=== PATIENT | male | born 1940 | race Caucasian/White ===

== ENCOUNTER 2023-04-04 20:40 | Inpatient (IN) | payer MEDICARE, OTHER ==
[~2023-04-04] VITALS: Ht 175.3 cm; Wt 73.1 kg
[2023-04-04 21:04] VITALS: O2SAT 96
[2023-04-04 22:07] LABS: BASOPHILS % (AUTO) 0.5 % (0.0-2.0); EOSINOPHILS # (AUTO) 0.1 K/uL (0.0-0.7); EOSINOPHILS % (AUTO) 2.4 % (0.0-6.0); HEMATOCRIT 32 % (39-51); HEMOGLOBIN 10.6 g/dL (13.5-17.5); LYMPHOCYTES # (AUTO) 1.1 K/uL (0.8-4.8); LYMPHOCYTES % (AUTO) 18.5 % (20.0-44.0); MEAN CORPUSCULAR HEMOGLOBIN 29 PG (26.0-33.0); MEAN CORPUSCULAR HGB CONC 33 g/dl (31.0-36.0); MEAN CORPUSCULAR VOLUME 88 fL (80-96); MONOCYTES # (AUTO) 0.6 K/uL (0.1-1.30); MONOCYTES % (AUTO) 10.1 % (2.0-12.0); NEUTROPHILS % (AUTO) 68.5 % (43.0-81.0); PLATELET COUNT (AUTO) 222 K/uL (150-450); RED CELL DISTRIBUTION WIDTH 15.6 % (11.5-15.0); WHITE BLOOD COUNT (AUTO) 5.9 K/uL (4.3-11.0)
[2023-04-04 22:28] LABS: ALBUMIN 3.3 g/dL (3.4-5.0); ALCOHOL, BLOOD < 3 mg/dL (0-10); CALCIUM, SERUM 8.9 mg/dL (8.5-10.1); CARBON DIOXIDE 27 mmol/L (21-32); CHLORIDE 109 mmol/L (98-107); CREATININE 1.2 mg/dL (0.6-1.3); GLUCOSE 96 mg/dL (74-106); POTASSIUM 4.4 mmol/L (3.5-5.1); SODIUM SERUM 143 mmol/L (136-145); UREA NITROGEN, BLOOD 26 mg/dL (7-18)
[2023-04-04 23:19] LABS: ACETAMINOPHEN < 10 ug/ml (10-30); ALANINE AMINOTRANSFERASE 14 U/L (12-78); ALKALINE PHOSPHATASE 66 U/L (46-116); ASPARTATE AMINOTRANSFERASE 15 U/L (15-37); BILIRUBIN,DIRECT 0.1 mg/dL (0.0-0.2); BILIRUBIN,TOTAL 0.3 mg/dL (0.2-1.0); TOTAL PROTEIN, SERUM 6.9 g/dL (6.4-8.2)
[2023-04-04 23:30] LABS: SALICYLATE 0.8 mg/dL (2.8-20.0)
[2023-04-04 23:34] LABS: APPEARANCE,URINE CLEAR (CLEAR); BILIRUBIN,URINE NEGATIVE (NEGATIVE); BLOOD, URINE NEGATIVE Ery/uL (NEGATIVE); COLOR,URINE YELLOW (YELLOW); KETONES,URINE NEGATIVE (NEGATIVE); LEUKOCYTE ESTERASE ,URINE NEGATIVE (NEGATIVE); NITRITE, URINE NEGATIVE (NEGATIVE); PROTEIN,URINE NEGATIVE (NEGATIVE); UGLUCOSE NEGATIVE (NEGATIVE); UROBILINOGEN,URINE 0.2 EU/dL (0.2)
[2023-04-05 00:27] LABS: AMPHETAMINE, URINE NEGATIVE (NEGATIVE); BARBITURATE, URINE NEGATIVE (NEGATIVE); BENZODIAZEPINE, URINE NEGATIVE (NEGATIVE); CANNABINOID, URINE NEGATIVE (NEGATIVE); COCCAINE, URINE NEGATIVE (NEGATIVE); OPIATE, URINE NEGATIVE (NEGATIVE); PHENCYCLIDINE SCREEN,URINE NEGATIVE (NEGATIVE)
[2023-04-05] MEDS ORDERED: CHOL200013 PO (02:27)
[2023-04-05] MEDS ORDERED: GABA-532 PO (02:27)
[2023-04-05] MEDS ORDERED: HYDR25TA4 PO (02:27)
[2023-04-05] MEDS ORDERED: MIRT-90 PO (02:27)
[2023-04-05] MEDS ORDERED: ASPI-1420 PO (02:27)
[2023-04-05 02:30] VITALS: BP 128/75; TEMP 97.6
[2023-04-05] MEDS ORDERED: LORAZEPAM 0.5 MG TABLET PO PRN (03:30)
[2023-04-05] MEDS ORDERED: MAG HYDROX/AL HYDROX/SIMETH 30 ML UDC PO PRN (03:30)
[2023-04-05] MEDS ORDERED: MAGNESIUM HYDROXIDE 30 ML UDC PO PRN (03:30)
[2023-04-05] MEDS ORDERED: ZOLPIDEM TARTRATE 5 MG TABLET PO PRN (03:30)
[2023-04-05] MEDS ORDERED: BLOOD SUGAR DIAGNOSTIC 1 EACH STRIP IN ONE (03:30)
[2023-04-05] MEDS ORDERED: ACETAMINOPHEN 325 MG TABLET PO PRN (03:30)
[2023-04-05] MEDS ORDERED: CICL6.6S5 TP (07:43)
[2023-04-05] MEDS ORDERED: MAGN400O6 PO (07:43)
[2023-04-05] MEDS ORDERED: CHOL100043 PO (07:43)
[2023-04-05] MEDS ORDERED: ACET-868 PO (07:43)
[2023-04-05] MEDS ORDERED: NA P133E RC (07:43)
[2023-04-05] MEDS ORDERED: BISA10SU11 RC (07:43)
[2023-04-05 08:00] VITALS: BP 150/64; TEMP 97.9; O2SAT 96
[2023-04-05] MEDS ORDERED: BISACODYL SUPP (10 MG) 10 MG/SUPP.RECT SUPP.RECT RC PRN (13:00)
[2023-04-05] MEDS ORDERED: GABAPENTIN 100 MG CAPSULE PO SCH (13:00)
[2023-04-05] MEDS: GABAPENTIN 300 MG CAPSULE PO SCH ×2 (13:19→16:39)
[2023-04-05 16:00] VITALS: BP 154/79; TEMP 97.8; O2SAT 96
[2023-04-05] MEDS: LORAZEPAM 0.5 MG TABLET PO PRN (16:25)
[2023-04-05] MEDS: Z GUARD REMEDY 4 OZ OINT TP SCH (16:38)
[2023-04-05] MEDS: risperiDONE 0.25 MG TABLET PO SCH (16:39)
[2023-04-05 20:00] VITALS: BP 106/78; TEMP 97.9; O2SAT 98
[2023-04-05] MEDS: MIRTAZAPINE 15 MG TABLET PO SCH (21:57)
[2023-04-06 08:00] VITALS: BP 130/74; TEMP 97.9; O2SAT 97
[2023-04-06] MEDS: LORAZEPAM 0.5 MG TABLET PO PRN (08:17)
[2023-04-06] MEDS: GABAPENTIN 300 MG CAPSULE PO SCH ×3 (09:05→16:13)
[2023-04-06] MEDS: risperiDONE 0.25 MG TABLET PO SCH ×2 (09:05→16:13)
[2023-04-06] MEDS: Z GUARD REMEDY 4 OZ OINT TP SCH ×2 (09:05→16:14)
[2023-04-06] MEDS: CHOLECALCIFEROL 1,000 UNIT TABLET (VIT D3) PO SCH (09:11)
[2023-04-06] MEDS: ASPIRIN EC 81 MG TABLET.DR PO SCH (09:11)
[2023-04-06] MEDS: HYDROCHLOROTHIAZIDE 25 MG TABLET PO SCH (09:11)
[2023-04-06 15:05] LABS: BASOPHILS % (AUTO) 0.7 % (0.0-2.0); EOSINOPHILS # (AUTO) 0.2 K/uL (0.0-0.7); EOSINOPHILS % (AUTO) 3.9 % (0.0-6.0); HEMATOCRIT 36 % (39-51); HEMOGLOBIN 11.7 g/dL (13.5-17.5); LYMPHOCYTES % (AUTO) 21.2 % (20.0-44.0); MEAN CORPUSCULAR HEMOGLOBIN 29 PG (26.0-33.0); MEAN CORPUSCULAR HGB CONC 33 g/dl (31.0-36.0); MEAN CORPUSCULAR VOLUME 88 fL (80-96); MONOCYTES # (AUTO) 0.5 K/uL (0.1-1.30); MONOCYTES % (AUTO) 9.2 % (2.0-12.0); NEUTROPHILS # (AUTO) 3.2 K/uL (1.8-8.9); PLATELET COUNT (AUTO) 232 K/uL (150-450); RED BLOOD CELL COUNT(AUTO) 4.09 MIL/uL (4.5-6.0); WHITE BLOOD COUNT (AUTO) 4.9 K/uL (4.3-11.0)
[2023-04-06 15:16] LABS: CALCIUM, SERUM 8.5 mg/dL (8.5-10.1); CREATININE 1.1 mg/dL (0.6-1.3); POTASSIUM 4.2 mmol/L (3.5-5.1)
[2023-04-06 16:00] VITALS: BP 95/53; TEMP 97.8; O2SAT 94
[2023-04-06 20:00] VITALS: BP 104/52; TEMP 97.8; O2SAT 97
[2023-04-06] MEDS: MIRTAZAPINE 15 MG TABLET PO SCH (21:04)
[2023-04-07] MEDS: LORAZEPAM 0.5 MG TABLET PO PRN ×2 (06:43→13:34)
[2023-04-07 08:00] VITALS: BP 114/75; TEMP 97.8; O2SAT 96
[2023-04-07] MEDS: ASPIRIN EC 81 MG TABLET.DR PO SCH (09:02)
[2023-04-07] MEDS: CHOLECALCIFEROL 1,000 UNIT TABLET (VIT D3) PO SCH (09:02)
[2023-04-07] MEDS: GABAPENTIN 300 MG CAPSULE PO SCH ×3 (09:02→16:44)
[2023-04-07] MEDS: HYDROCHLOROTHIAZIDE 25 MG TABLET PO SCH (09:02)
[2023-04-07] MEDS: risperiDONE 0.25 MG TABLET PO SCH ×2 (09:02→16:44)
[2023-04-07] MEDS: Z GUARD REMEDY 4 OZ OINT TP SCH ×2 (09:03→16:44)
[2023-04-07 16:01] VITALS: BP 113/76; TEMP 97.8; O2SAT 96
[2023-04-07 20:28] VITALS: BP 104/64; TEMP 98.1; O2SAT 96
[2023-04-07] MEDS: MIRTAZAPINE 15 MG TABLET PO SCH (21:26)
[2023-04-08 08:00] VITALS: BP 134/59; TEMP 97.9; O2SAT 95
[2023-04-08] MEDS: risperiDONE 0.25 MG TABLET PO SCH ×2 (08:35→17:53)
[2023-04-08] MEDS: CHOLECALCIFEROL 1,000 UNIT TABLET (VIT D3) PO SCH ×2 (08:35→09:00)
[2023-04-08] MEDS: GABAPENTIN 300 MG CAPSULE PO SCH ×3 (08:36→17:53)
[2023-04-08] MEDS: ASPIRIN EC 81 MG TABLET.DR PO SCH ×2 (08:36→09:00)
[2023-04-08] MEDS: HYDROCHLOROTHIAZIDE 25 MG TABLET PO SCH ×2 (08:37→09:00)
[2023-04-08] MEDS: ENSURE ENLIVE 237 ML LIQUID (VANILLA) PO SCH ×2 (08:38→17:00)
[2023-04-08] MEDS: Z GUARD REMEDY 4 OZ OINT TP SCH ×2 (08:38→17:54)
[2023-04-08] MEDS: LORAZEPAM 0.5 MG TABLET PO PRN (12:01)
[2023-04-08 16:00] VITALS: BP 121/66; TEMP 98.1; O2SAT 100
[2023-04-08 19:48] VITALS: BP 104/62; TEMP 98; O2SAT 98
[2023-04-08] MEDS: MIRTAZAPINE 15 MG TABLET PO SCH (21:16)
[2023-04-09 08:00] VITALS: BP 123/73; TEMP 98.7; O2SAT 95
[2023-04-09] MEDS: risperiDONE 0.25 MG TABLET PO SCH ×2 (08:42→16:42)
[2023-04-09] MEDS: CHOLECALCIFEROL 1,000 UNIT TABLET (VIT D3) PO SCH (08:42)
[2023-04-09] MEDS: ASPIRIN EC 81 MG TABLET.DR PO SCH (08:42)
[2023-04-09] MEDS: GABAPENTIN 300 MG CAPSULE PO SCH ×3 (08:42→16:42)
[2023-04-09] MEDS: HYDROCHLOROTHIAZIDE 25 MG TABLET PO SCH (08:43)
[2023-04-09] MEDS: Z GUARD REMEDY 4 OZ OINT TP SCH ×2 (09:06→16:42)
[2023-04-09] MEDS: ENSURE ENLIVE 237 ML LIQUID (VANILLA) PO SCH ×2 (09:10→16:51)
[2023-04-09] MEDS: MEMANTINE HCL 5 MG TABLET PO SCH ×2 (10:55→16:42)
[2023-04-09 16:00] VITALS: BP 123/93; TEMP 97.9; O2SAT 98
[2023-04-09 20:22] VITALS: BP 103/57; TEMP 97.8; O2SAT 97
[2023-04-09] MEDS: MIRTAZAPINE 15 MG TABLET PO SCH (21:12)
[2023-04-10] MEDS: ENSURE ENLIVE 237 ML LIQUID (VANILLA) PO SCH ×2 (07:39→16:03)
[2023-04-10 08:00] VITALS: BP 122/79; TEMP 98.7; O2SAT 98
[2023-04-10] MEDS: CHOLECALCIFEROL 1,000 UNIT TABLET (VIT D3) PO SCH (08:43)
[2023-04-10] MEDS: HYDROCHLOROTHIAZIDE 25 MG TABLET PO SCH (08:43)
[2023-04-10] MEDS: ASPIRIN EC 81 MG TABLET.DR PO SCH (08:43)
[2023-04-10] MEDS: risperiDONE 0.25 MG TABLET PO SCH ×2 (08:43→16:03)
[2023-04-10] MEDS: MEMANTINE HCL 5 MG TABLET PO SCH ×2 (08:44→16:03)
[2023-04-10] MEDS: GABAPENTIN 300 MG CAPSULE PO SCH ×3 (08:44→16:03)
[2023-04-10] MEDS: Z GUARD REMEDY 4 OZ OINT TP SCH ×2 (09:27→17:46)
[2023-04-10 16:00] VITALS: BP 99/80; TEMP 98.6; O2SAT 97
[2023-04-10 20:18] VITALS: BP 103/75; TEMP 98; O2SAT 97
[2023-04-10] MEDS: MIRTAZAPINE 15 MG TABLET PO SCH (21:07)
[2023-04-11 08:00] VITALS: BP 118/75; TEMP 97.7; O2SAT 97
[2023-04-11] MEDS: ENSURE ENLIVE 237 ML LIQUID (VANILLA) PO SCH ×2 (09:09→16:18)
[2023-04-11] MEDS: CHOLECALCIFEROL 1,000 UNIT TABLET (VIT D3) PO SCH (09:10)
[2023-04-11] MEDS: MEMANTINE HCL 5 MG TABLET PO SCH ×2 (09:10→16:18)
[2023-04-11] MEDS: ASPIRIN EC 81 MG TABLET.DR PO SCH (09:10)
[2023-04-11] MEDS: Z GUARD REMEDY 4 OZ OINT TP SCH ×2 (09:10→16:18)
[2023-04-11] MEDS: GABAPENTIN 300 MG CAPSULE PO SCH ×3 (09:10→16:17)
[2023-04-11] MEDS: risperiDONE 0.25 MG TABLET PO SCH ×2 (09:10→16:17)
[2023-04-11] MEDS: HYDROCHLOROTHIAZIDE 25 MG TABLET PO SCH (09:10)
[2023-04-11 16:00] VITALS: BP 125/77; TEMP 98.3; O2SAT 96
[2023-04-11] MEDS: BENZTROPINE MESYLATE (1 MG) 1 MG TABLET PO SCH (16:17)
[2023-04-11 20:00] VITALS: BP 112/65; TEMP 97.9; O2SAT 98
[2023-04-11] MEDS: MIRTAZAPINE 15 MG TABLET PO SCH (21:17)
[2023-04-12 08:00] VITALS: BP 115/73; TEMP 98; O2SAT 100
[2023-04-12] MEDS: risperiDONE 0.25 MG TABLET PO SCH ×2 (08:21→16:37)
[2023-04-12] MEDS: HYDROCHLOROTHIAZIDE 25 MG TABLET PO SCH (08:21)
[2023-04-12] MEDS: ENSURE ENLIVE 237 ML LIQUID (VANILLA) PO SCH ×2 (08:21→16:38)
[2023-04-12] MEDS: BENZTROPINE MESYLATE (1 MG) 1 MG TABLET PO SCH ×2 (08:21→16:37)
[2023-04-12] MEDS: MEMANTINE HCL 5 MG TABLET PO SCH (08:21)
[2023-04-12] MEDS: ASPIRIN EC 81 MG TABLET.DR PO SCH (08:21)
[2023-04-12] MEDS: GABAPENTIN 300 MG CAPSULE PO SCH ×2 (08:21→12:09)
[2023-04-12] MEDS: CHOLECALCIFEROL 1,000 UNIT TABLET (VIT D3) PO SCH (08:21)
[2023-04-12] MEDS: Z GUARD REMEDY 4 OZ OINT TP SCH ×2 (08:23→16:37)
[2023-04-12] MEDS ORDERED: GABAPENTIN 300 MG CAPSULE PO SCH (17:00)
[2023-04-12] MEDS: GABAPENTIN 100 MG CAPSULE PO SCH (17:52)
[2023-04-12 18:54] VITALS: BP 109/75; TEMP 98.3; O2SAT 95
[2023-04-12 20:00] VITALS: BP 101/59; TEMP 98.3; O2SAT 98
[2023-04-12] MEDS: MIRTAZAPINE 15 MG TABLET PO SCH (21:20)
[2023-04-13 08:00] VITALS: BP 121/90; TEMP 97.9; O2SAT 94
[2023-04-13] MEDS: GABAPENTIN 100 MG CAPSULE PO SCH ×3 (08:07→16:12)
[2023-04-13] MEDS: HYDROCHLOROTHIAZIDE 25 MG TABLET PO SCH (08:07)
[2023-04-13] MEDS: BENZTROPINE MESYLATE (1 MG) 1 MG TABLET PO SCH ×2 (08:07→16:12)
[2023-04-13] MEDS: risperiDONE 0.25 MG TABLET PO SCH ×2 (08:07→16:12)
[2023-04-13] MEDS: CHOLECALCIFEROL 1,000 UNIT TABLET (VIT D3) PO SCH (08:07)
[2023-04-13] MEDS: ASPIRIN EC 81 MG TABLET.DR PO SCH (08:07)
[2023-04-13] MEDS: OXCARBAZEPINE 150 MG TABLET PO SCH ×2 (08:16→15:16)
[2023-04-13] MEDS: ENSURE ENLIVE 237 ML LIQUID (VANILLA) PO SCH ×2 (08:19→16:12)
[2023-04-13] MEDS: Z GUARD REMEDY 4 OZ OINT TP SCH ×2 (09:12→16:12)
[2023-04-13 16:00] VITALS: BP 100/61; TEMP 98.2; O2SAT 98
[2023-04-13 20:00] VITALS: BP 114/71; TEMP 98; O2SAT 97
[2023-04-13] MEDS: MIRTAZAPINE 15 MG TABLET PO SCH (21:05)
[2023-04-14 08:00] VITALS: BP 118/67; TEMP 98; O2SAT 95
[2023-04-14] MEDS: Z GUARD REMEDY 4 OZ OINT TP SCH ×2 (08:03→16:25)
[2023-04-14] MEDS: GABAPENTIN 100 MG CAPSULE PO SCH ×3 (08:04→16:25)
[2023-04-14] MEDS: HYDROCHLOROTHIAZIDE 25 MG TABLET PO SCH (08:04)
[2023-04-14] MEDS: OXCARBAZEPINE 150 MG TABLET PO SCH ×2 (08:04→16:25)
[2023-04-14] MEDS: risperiDONE 0.25 MG TABLET PO SCH ×2 (08:04→16:25)
[2023-04-14] MEDS: CHOLECALCIFEROL 1,000 UNIT TABLET (VIT D3) PO SCH (08:04)
[2023-04-14] MEDS: ASPIRIN EC 81 MG TABLET.DR PO SCH (08:05)
[2023-04-14] MEDS: ENSURE ENLIVE 237 ML LIQUID (VANILLA) PO SCH ×2 (08:05→16:25)
[2023-04-14] MEDS: BENZTROPINE MESYLATE (1 MG) 1 MG TABLET PO SCH ×2 (08:05→16:25)
[2023-04-14 16:00] VITALS: BP 107/60; TEMP 97.8; O2SAT 96
[2023-04-14 20:42] VITALS: BP 111/77; TEMP 97.9; O2SAT 98
[2023-04-14] MEDS: MIRTAZAPINE 15 MG TABLET PO SCH (21:48)
[2023-04-15 08:00] VITALS: BP 116/67; TEMP 97.8; O2SAT 96
[2023-04-15] MEDS: Z GUARD REMEDY 4 OZ OINT TP SCH ×2 (08:06→16:25)
[2023-04-15] MEDS: CHOLECALCIFEROL 1,000 UNIT TABLET (VIT D3) PO SCH (08:07)
[2023-04-15] MEDS: ENSURE ENLIVE 237 ML LIQUID (VANILLA) PO SCH ×2 (08:07→16:25)
[2023-04-15] MEDS: HYDROCHLOROTHIAZIDE 25 MG TABLET PO SCH (08:07)
[2023-04-15] MEDS: risperiDONE 0.25 MG TABLET PO SCH ×2 (08:08→16:25)
[2023-04-15] MEDS: OXCARBAZEPINE 150 MG TABLET PO SCH ×4 (08:08→20:14)
[2023-04-15] MEDS: GABAPENTIN 100 MG CAPSULE PO SCH ×3 (08:08→16:25)
[2023-04-15] MEDS: ASPIRIN EC 81 MG TABLET.DR PO SCH (08:08)
[2023-04-15] MEDS: BENZTROPINE MESYLATE (1 MG) 1 MG TABLET PO SCH ×2 (08:08→16:25)
[2023-04-15 16:00] VITALS: BP 100/73; TEMP 97.8; O2SAT 98
[2023-04-15 20:06] VITALS: BP 116/81; TEMP 97.9; O2SAT 96
[2023-04-15] MEDS: MIRTAZAPINE 15 MG TABLET PO SCH (21:02)
[2023-04-16] MEDS: HYDROCHLOROTHIAZIDE 25 MG TABLET PO SCH (07:55)
[2023-04-16] MEDS: risperiDONE 0.25 MG TABLET PO SCH ×2 (07:56→16:42)
[2023-04-16] MEDS: ASPIRIN EC 81 MG TABLET.DR PO SCH (07:56)
[2023-04-16] MEDS: GABAPENTIN 100 MG CAPSULE PO SCH ×3 (07:56→16:41)
[2023-04-16] MEDS: BENZTROPINE MESYLATE (1 MG) 1 MG TABLET PO SCH ×2 (07:56→16:41)
[2023-04-16] MEDS: OXCARBAZEPINE 150 MG TABLET PO SCH ×3 (07:57→21:21)
[2023-04-16] MEDS: CHOLECALCIFEROL 1,000 UNIT TABLET (VIT D3) PO SCH (07:57)
[2023-04-16 08:00] VITALS: BP 160/74; TEMP 97.8; O2SAT 96
[2023-04-16] MEDS: Z GUARD REMEDY 4 OZ OINT TP SCH ×2 (08:12→17:38)
[2023-04-16] MEDS: ENSURE ENLIVE 237 ML LIQUID (VANILLA) PO SCH ×2 (08:14→16:42)
[2023-04-16 16:00] VITALS: BP 114/56; TEMP 97.8; O2SAT 96
[2023-04-16 20:21] VITALS: BP 111/76; TEMP 97.9; O2SAT 98
[2023-04-16] MEDS: MIRTAZAPINE 15 MG TABLET PO SCH (21:22)
[2023-04-17 08:00] VITALS: BP 116/93; TEMP 98.1; O2SAT 98
[2023-04-17] MEDS: ASPIRIN EC 81 MG TABLET.DR PO SCH ×2 (09:00→11:18)
[2023-04-17] MEDS: CHOLECALCIFEROL 1,000 UNIT TABLET (VIT D3) PO SCH ×2 (09:00→11:18)
[2023-04-17] MEDS: HYDROCHLOROTHIAZIDE 25 MG TABLET PO SCH ×2 (09:00→11:17)
[2023-04-17] MEDS: ENSURE ENLIVE 237 ML LIQUID (VANILLA) PO SCH ×2 (11:17→17:25)
[2023-04-17] MEDS: GABAPENTIN 100 MG CAPSULE PO SCH ×5 (11:17→17:24)
[2023-04-17] MEDS: risperiDONE 0.25 MG TABLET PO SCH ×3 (11:18→17:25)
[2023-04-17] MEDS: OXCARBAZEPINE 150 MG TABLET PO SCH ×4 (11:19→22:02)
[2023-04-17] MEDS: BENZTROPINE MESYLATE (1 MG) 1 MG TABLET PO SCH ×3 (11:19→17:25)
[2023-04-17] MEDS: Z GUARD REMEDY 4 OZ OINT TP SCH ×2 (12:00→17:32)
[2023-04-17] MEDS: NEOMY SULF/BACITRAC ZN/POLY 15 GM TUBE TP SCH ×2 (12:00→17:32)
[2023-04-17 16:00] VITALS: BP 102/70; TEMP 98.6; O2SAT 97
[2023-04-17 20:58] VITALS: BP 101/70; TEMP 97.9; O2SAT 96
[2023-04-17] MEDS: MIRTAZAPINE 15 MG TABLET PO SCH (22:03)
[2023-04-18 08:00] VITALS: BP 110/61; TEMP 98.6; O2SAT 97
[2023-04-18] MEDS: ENSURE ENLIVE 237 ML LIQUID (VANILLA) PO SCH ×2 (08:58→17:05)
[2023-04-18] MEDS: HYDROCHLOROTHIAZIDE 25 MG TABLET PO SCH (09:00)
[2023-04-18] MEDS: OXCARBAZEPINE 150 MG TABLET PO SCH ×3 (09:58→21:42)
[2023-04-18] MEDS: risperiDONE 0.25 MG TABLET PO SCH ×2 (09:58→16:10)
[2023-04-18] MEDS: CHOLECALCIFEROL 1,000 UNIT TABLET (VIT D3) PO SCH (09:58)
[2023-04-18] MEDS: ASPIRIN EC 81 MG TABLET.DR PO SCH (09:58)
[2023-04-18] MEDS: BENZTROPINE MESYLATE (1 MG) 1 MG TABLET PO SCH ×2 (09:58→16:10)
[2023-04-18] MEDS: GABAPENTIN 100 MG CAPSULE PO SCH ×3 (09:58→16:10)
[2023-04-18] MEDS: Z GUARD REMEDY 4 OZ OINT TP SCH ×2 (09:59→16:10)
[2023-04-18 16:04] VITALS: BP 125/67; TEMP 98.1; O2SAT 100
[2023-04-18 20:00] VITALS: BP 105/69; TEMP 98.3; O2SAT 97
[2023-04-18] MEDS: MIRTAZAPINE 15 MG TABLET PO SCH (21:42)
[2023-04-19 08:00] VITALS: BP 107/73; TEMP 97.8; O2SAT 98
[2023-04-19] MEDS: ENSURE ENLIVE 237 ML LIQUID (VANILLA) PO SCH (08:00)
[2023-04-19] MEDS: CHOLECALCIFEROL 1,000 UNIT TABLET (VIT D3) PO SCH (08:01)
[2023-04-19] MEDS: OXCARBAZEPINE 150 MG TABLET PO SCH (08:01)
[2023-04-19] MEDS: Z GUARD REMEDY 4 OZ OINT TP SCH (08:01)
[2023-04-19] MEDS: BENZTROPINE MESYLATE (1 MG) 1 MG TABLET PO SCH (08:01)
[2023-04-19] MEDS: ASPIRIN EC 81 MG TABLET.DR PO SCH (08:01)
[2023-04-19] MEDS: GABAPENTIN 100 MG CAPSULE PO SCH (08:01)
[2023-04-19] MEDS: risperiDONE 0.25 MG TABLET PO SCH (08:01)
[2023-04-19 09:00] VITALS: BP 107/73
[2023-04-19] MEDS: HYDROCHLOROTHIAZIDE 25 MG TABLET PO SCH (09:00)
== END 2023-04-19 12:35 | DRG 885 ==
LOC: ER 21:07 → TRANSITION 04-05 00:44 → GPS 04-05 02:07
PROVIDERS: ADMIT Psychiatry & Neurology Psychiatry; ATTEND Internal Medicine
DX: F31.9 Bipolar disorder, unspecified (principal); N18.9 Chronic kidney disease, unspecified; F02.82 Dementia in other diseases classified elsewhere, unspecified severity, with psychotic disturbance; F02.83 Dementia in other diseases classified elsewhere, unspecified severity, with mood disturbance; F02.84 Dementia in other diseases classified elsewhere, unspecified severity, with anxiety; F02.818 Dementia in other diseases classified elsewhere, unspecified severity, with other behavioral disturbance; F29 Unspecified psychosis not due to a substance or known physiological condition; I12.9 Hypertensive chronic kidney disease with stage 1 through stage 4 chronic kidney disease, or unspecified chronic kidney disease; G30.9 Alzheimer's disease, unspecified; F39 Unspecified mood [affective] disorder; R13.10 Dysphagia, unspecified; E78.5 Hyperlipidemia, unspecified; Z79.899 Other long term (current) drug therapy; I71.21 Aneurysm of the ascending aorta, without rupture; Z91.81 History of falling; Z87.891 Personal history of nicotine dependence; Z86.79 Personal history of other diseases of the circulatory system; R53.1 Weakness; Z79.82 Long term (current) use of aspirin; Z73.6 Limitation of activities due to disability; R27.8 Other lack of coordination; F41.9 Anxiety disorder, unspecified
CPT/HCPCS: 36415; 80048-TC; 80061-TC; 80076-TC; 82962-TC; 85025-TC; 87081-TC; 97112-TC; 97116-TC; 97530-TC; C9803; G0480

== ENCOUNTER 2024-06-07 10:13 | Inpatient (IN) | payer MEDICARE, OTHER ==
[~2024-06-07] VITALS: Ht 180.3 cm; Wt 70.3 kg
[~2024-06-07 10:13] MED LIST: ACET-868 PO; ASPI-1420 PO; BISA10SU11 RC; CHOL100043 PO; CICL6.6S5 TP; GABA-532 PO; HYDR25TA4 PO; MAGN400O6 PO; MIRT-90 PO; NA P133E RC
[2024-06-07] MEDS: IV NS 0.9% 1,000 ML BAG IV ONE (10:37)
[2024-06-07] MEDS ORDERED: PIPERACI/TAZO 3.375GM/D5W 50ML PB IV ONE (10:43)
[2024-06-07] MEDS ORDERED: MORPHINE SULFATE INJ 2 MG/ML DISP.SYRIN ONE (10:43)
[2024-06-07] MEDS ORDERED: VANCOMYCIN 1 GM /D5W 250 ML PB IV ONE (10:43)
[2024-06-07 10:47] LABS: BASOPHILS % (AUTO) 0.1 % (0.0-2.0); EOSINOPHILS % (AUTO) 0.1 % (0.0-6.0); HEMATOCRIT 38 % (39-51); HEMOGLOBIN 12.4 g/dL (13.5-17.5); LYMPHOCYTES # (AUTO) 0.7 K/uL (0.8-4.8); LYMPHOCYTES % (AUTO) 10.6 % (20.0-44.0); MEAN CORPUSCULAR HEMOGLOBIN 29 PG (26.0-33.0); MEAN CORPUSCULAR HGB CONC 33 g/dl (31.0-36.0); MEAN CORPUSCULAR VOLUME 88 fL (80-96); MONOCYTES # (AUTO) 0.6 K/uL (0.1-1.30); MONOCYTES % (AUTO) 9.1 % (2.0-12.0); NEUTROPHILS # (AUTO) 5.1 K/uL (1.8-8.9); NEUTROPHILS % (AUTO) 80.1 % (43.0-81.0); PLATELET COUNT (AUTO) 210 K/uL (150-450); RED BLOOD CELL COUNT(AUTO) 4.26 MIL/uL (4.5-6.0); RED CELL DISTRIBUTION WIDTH 16.3 % (11.5-15.0); WHITE BLOOD COUNT (AUTO) 6.4 K/uL (4.3-11.0)
[2024-06-07] MEDS: MORPHINE SULFATE INJ 2 MG/ML DISP.SYRIN IV ONE (10:48)
[2024-06-07 11:08] LABS: INR 1.07 (0.91-1.10); PARTIAL THROMBOPLASTIN TIME 28.9 SEC (24.3-34.3); PROTHROMBIN TIME 11.3 SECS (9.2-11.1)
[2024-06-07] MEDS ORDERED: ACET-868 PO (11:29)
[2024-06-07] MEDS ORDERED: MAG30ORA PO (11:29)
[2024-06-07] MEDS ORDERED: ASCO-352 PO (11:29)
[2024-06-07] MEDS ORDERED: GABA300C PO (11:29)
[2024-06-07] MEDS ORDERED: DIVA-76 PO (11:29)
[2024-06-07] MEDS ORDERED: BENZ0.5T43 PO (11:29)
[2024-06-07] MEDS ORDERED: ZINC1CAP2 PO (11:29)
[2024-06-07] MEDS ORDERED: OLME1TAB88 PO (11:29)
[2024-06-07] MEDS ORDERED: OXCA300O5 PO (11:29)
[2024-06-07] MEDS ORDERED: PSYL822P6 PO (11:29)
[2024-06-07] MEDS ORDERED: FAMO20TA80 PO (11:29)
[2024-06-07] MEDS ORDERED: MULT-225 PO (11:29)
[2024-06-07] MEDS ORDERED: ACET-2030 PO (11:29)
[2024-06-07] MEDS ORDERED: NA P133E RC (11:29)
[2024-06-07] MEDS ORDERED: BETA45CR3 TP (11:29)
[2024-06-07] MEDS ORDERED: SENN8.6T19 PO (11:29)
[2024-06-07] MEDS ORDERED: PANT40TA2 PO (11:29)
[2024-06-07] MEDS ORDERED: AMIN30LI66 PO (11:29)
[2024-06-07] MEDS: PIPERACILLIN /TAZOBACTAM 3.375 G in IV D5W 50 ML IV ONE (11:30)
[2024-06-07 11:54] LABS: APPEARANCE,URINE CLEAR (CLEAR); BILIRUBIN,URINE NEGATIVE (NEGATIVE); BLOOD, URINE NEGATIVE Ery/uL (NEGATIVE); COLOR,URINE YELLOW (YELLOW); KETONES,URINE TRACE mg/dL (NEGATIVE); LEUKOCYTE ESTERASE ,URINE NEGATIVE (NEGATIVE); NITRITE, URINE NEGATIVE (NEGATIVE); PROTEIN,URINE 1+ mg/dl (NEGATIVE); UGLUCOSE NEGATIVE (NEGATIVE); UROBILINOGEN,URINE 0.2 EU/dL (0.2)
[2024-06-07 11:58] LABS: ADD URINE CULTURE NO; BACTERIA,URINE Few /HPF (None Seen); HYALINE CASTS, URINE Moderate /LPF (None Seen)
[2024-06-07] MEDS: VANCOMYCIN 1 GM in IV D5W 250 ML IV ONE (12:00)
[2024-06-07 12:05] LABS: LACTIC ACID 2.5 mmol/L (0.4-2.0)
[2024-06-07 12:09] LABS: ALANINE AMINOTRANSFERASE 55 U/L (12-78); ALBUMIN 2.4 g/dL (3.4-5.0); ALKALINE PHOSPHATASE 106 U/L (46-116); ASPARTATE AMINOTRANSFERASE 27 U/L (15-37); BILIRUBIN,DIRECT 0.1 mg/dL (0.0-0.2); BILIRUBIN,TOTAL 0.3 mg/dL (0.2-1.0); CARBON DIOXIDE 32 mmol/L (21-32); CHLORIDE 108 mmol/L (98-107); CREATININE 1.2 mg/dL (0.6-1.3); GLUCOSE 101 mg/dL (74-106); POTASSIUM 3.8 mmol/L (3.5-5.1); SODIUM SERUM 145 mmol/L (136-145); UREA NITROGEN, BLOOD 31 mg/dL (7-18)
[2024-06-07] MEDS ORDERED: MAGNESIUM HYDROXIDE 30 ML UDC PO PRN (14:00)
[2024-06-07] MEDS ORDERED: MAG HYDROX/AL HYDROX/SIMETH 30 ML UDC PO PRN (14:00)
[2024-06-07] MEDS ORDERED: ACETAMINOPHEN 325 MG TABLET PO PRN (14:00)
[2024-06-07] MEDS ORDERED: Z GUARD REMEDY 4 OZ OINT TP PRN (14:00)
[2024-06-07] MEDS ORDERED: ONDANSETRON HCL/PF 4 MG/2 ML VIAL IVP PRN (14:00)
[2024-06-07 16:00] VITALS: BP 88/48; TEMP 98.2; O2SAT 92
[2024-06-07] MEDS: PIPERACILLIN /TAZOBACTAM 3.375 G in IV D5W 50 ML IV SCH (17:08)
[2024-06-07] MEDS: IV D5/ 0.9% NACL 1,000 ML IV PRN (17:19)
[2024-06-07 20:00] VITALS: BP 128/87; TEMP 97.9; O2SAT 92
[2024-06-07] MEDS: PERMETHRIN 5% CRM 60 GM TUBE TP ONE (21:01)
[2024-06-08] VITALS (11 sets, daily range): BP systolic 103–148; BP diastolic 61–103; TEMP 97.4–98.4; O2SAT 94–100
[2024-06-08] MEDS: VANCOMYCIN 500 MG in IV D5W 100ml IV SCH (00:54)
[2024-06-08 08:23] LABS: BASOPHILS % (AUTO) 0.1 % (0.0-2.0); HEMATOCRIT 33 % (39-51); HEMOGLOBIN 11.2 g/dL (13.5-17.5); LYMPHOCYTES # (AUTO) 0.6 K/uL (0.8-4.8); LYMPHOCYTES % (AUTO) 4.2 % (20.0-44.0); MEAN CORPUSCULAR HEMOGLOBIN 30 PG (26.0-33.0); MEAN CORPUSCULAR HGB CONC 34 g/dl (31.0-36.0); MEAN CORPUSCULAR VOLUME 88 fL (80-96); MONOCYTES # (AUTO) 0.3 K/uL (0.1-1.30); MONOCYTES % (AUTO) 2.2 % (2.0-12.0); NEUTROPHILS # (AUTO) 13.3 K/uL (1.8-8.9); NEUTROPHILS % (AUTO) 93.5 % (43.0-81.0); PLATELET COUNT (AUTO) 165 K/uL (150-450); RED BLOOD CELL COUNT(AUTO) 3.71 MIL/uL (4.5-6.0); RED CELL DISTRIBUTION WIDTH 15.9 % (11.5-15.0); WHITE BLOOD COUNT (AUTO) 14.3 K/uL (4.3-11.0)
[2024-06-08 08:24] LABS: CREATININE 1.1 mg/dL (0.6-1.3); MAGNESIUM 1.9 mg/dL (1.8-2.4); PHOSPHORUS 3.7 mg/dL (2.5-4.9); POTASSIUM 3.5 mmol/L (3.5-5.1)
[2024-06-08] MEDS ORDERED: MAGNESIUM HYDROXIDE 30 ML UDC PO PRN (08:30)
[2024-06-08] MEDS ORDERED: ACETAMINOPHEN 325 MG TABLET PO PRN (08:30)
[2024-06-08] MEDS ORDERED: NA PHOS,M-B/NA PHOS,DI-BA 1 EA ENEMA RC PRN (08:30)
[2024-06-08] MEDS ORDERED: MAG HYDROX/AL HYDROX/SIMETH 30 ML UDC PO PRN (08:30)
[2024-06-08] MEDS ORDERED: ACETAMINOPHEN ES 500 MG TABLET PO PRN (08:30)
[2024-06-08] MEDS ORDERED: BISACODYL SUPP (10 MG) 10 MG/SUPP.RECT SUPP.RECT RC PRN (08:30)
[2024-06-08] MEDS: BENZTROPINE MESYLATE (1 MG) 1 MG TABLET PO SCH (08:45)
[2024-06-08] MEDS: GABAPENTIN 300 MG CAPSULE PO SCH (08:45)
[2024-06-08] MEDS: PSYLLIUM SEED 1 PKT PACKET PO SCH (08:45)
[2024-06-08] MEDS: DIVALPROEX SODIUM 125 MG TABLET.DR PO SCH (08:45)
[2024-06-08] MEDS: OXCARBAZEPINE 150 MG TABLET PO SCH (08:46)
[2024-06-08] MEDS: ACETAMINOPHEN 325 MG TABLET PO SCH (08:46)
[2024-06-08] MEDS: CHOLECALCIFEROL 1,000 UNIT TABLET (VIT D3) PO SCH (08:46)
[2024-06-08] MEDS: ASCORBIC ACID 500 MG TABLET PO SCH (08:46)
[2024-06-08] MEDS: FAMOTIDINE (20 MG) 20 MG TABLET PO SCH (08:46)
[2024-06-08] MEDS: MULTIVITAMINS,THERAGRAN 1 UDTAB TABLET PO SCH (08:46)
[2024-06-08] MEDS: SENNOSIDES 8.6 MG TABLET PO SCH (08:46)
[2024-06-08] MEDS: PROSOURCE / PROSTAT (PYXIS) 30 ML UDC PO SCH (08:46)
[2024-06-08] MEDS: ZINC SULFATE 220 MG CAPSULE PO SCH (08:47)
[2024-06-08] MEDS: PANTOPRAZOLE 40 MG VIAL IV SCH (09:03)
[2024-06-08] MEDS: BETAMETHASONE DIP 0.05% CREAM 15 GM TUBE TP SCH (09:44)
[2024-06-08] MEDS ORDERED: ALBUTEROL HALF STRENGTH 1.25 MG/3 ML VIAL.NEB NEB PRN (14:00)
[2024-06-08 14:34] LABS: BAND % (MANUAL) 11 % (0.0-5.0); LYMPHOCYTES % (MANUAL) 1 % (16-48); MONOCYTES % (MANUAL) 4 % (0-11.0); NEUTROPHILS % (MANUAL) 84 (42-76)
[2024-06-08 14:35] LABS: PLATELET ESTIMATE ADEQUATE
[2024-06-08 14:36] LABS: ANISOCYTOSIS 1+; OVALOCYTES 1+
[2024-06-09] VITALS (18 sets, daily range): BP systolic 92–134; BP diastolic 63–85; TEMP 97.5–98; O2SAT 96–100
[2024-06-09] MEDS: PANTOPRAZOLE 40 MG TABLET.DR PO SCH (07:30)
[2024-06-09 08:22] LABS: BASOPHILS % (AUTO) 0.2 % (0.0-2.0); EOSINOPHILS # (AUTO) 0.1 K/uL (0.0-0.7); EOSINOPHILS % (AUTO) 0.4 % (0.0-6.0); HEMATOCRIT 32 % (39-51); HEMOGLOBIN 10.8 g/dL (13.5-17.5); LYMPHOCYTES # (AUTO) 0.5 K/uL (0.8-4.8); LYMPHOCYTES % (AUTO) 3.5 % (20.0-44.0); MEAN CORPUSCULAR HEMOGLOBIN 30 PG (26.0-33.0); MEAN CORPUSCULAR HGB CONC 34 g/dl (31.0-36.0); MEAN CORPUSCULAR VOLUME 89 fL (80-96); MONOCYTES # (AUTO) 0.3 K/uL (0.1-1.30); MONOCYTES % (AUTO) 2.4 % (2.0-12.0); NEUTROPHILS # (AUTO) 12.8 K/uL (1.8-8.9); NEUTROPHILS % (AUTO) 93.5 % (43.0-81.0); PLATELET COUNT (AUTO) 175 K/uL (150-450); RED BLOOD CELL COUNT(AUTO) 3.57 MIL/uL (4.5-6.0); RED CELL DISTRIBUTION WIDTH 15.8 % (11.5-15.0); WHITE BLOOD COUNT (AUTO) 13.7 K/uL (4.3-11.0)
[2024-06-09 08:25] LABS: CALCIUM, SERUM 8.7 mg/dL (8.5-10.1); CREATININE 1.1 mg/dL (0.6-1.3); POTASSIUM 3.3 mmol/L (3.5-5.1)
[2024-06-09] MEDS: POTASSIUM CHLORIDE 20 MEQ TAB.PRT.SR PO ONE (12:24)
[2024-06-09] MEDS: ENOXAPARIN SODIUM 40 MG/0.4 ML DISP.SYRIN SQ SCH (18:12)
[2024-06-10] VITALS (18 sets, daily range): BP systolic 108–136; BP diastolic 55–80; TEMP 97.5–97.9; O2SAT 97–100
[2024-06-10] MEDS: ENSURE ENLIVE CHOC 237 ML CAN PO SCH (09:30)
[2024-06-10] MEDS: IV D5/0.45 NACL 1,000 ML IV PRN (13:19)
[2024-06-10 13:35] LABS: CALCIUM, SERUM 8.7 mg/dL (8.5-10.1); POTASSIUM 3.3 mmol/L (3.5-5.1)
[2024-06-10 17:07] LABS: BASOPHILS % (AUTO) 0.2 % (0.0-2.0); EOSINOPHILS # (AUTO) 0.8 K/uL (0.0-0.7); EOSINOPHILS % (AUTO) 9.5 % (0.0-6.0); HEMATOCRIT 33 % (39-51); HEMOGLOBIN 10.9 g/dL (13.5-17.5); LYMPHOCYTES # (AUTO) 0.5 K/uL (0.8-4.8); LYMPHOCYTES % (AUTO) 5.4 % (20.0-44.0); MEAN CORPUSCULAR HEMOGLOBIN 30 PG (26.0-33.0); MEAN CORPUSCULAR HGB CONC 33 g/dl (31.0-36.0); MEAN CORPUSCULAR VOLUME 90 fL (80-96); MONOCYTES # (AUTO) 0.3 K/uL (0.1-1.30); MONOCYTES % (AUTO) 3.4 % (2.0-12.0); NEUTROPHILS # (AUTO) 7.2 K/uL (1.8-8.9); NEUTROPHILS % (AUTO) 81.5 % (43.0-81.0); PLATELET COUNT (AUTO) 178 K/uL (150-450); RED BLOOD CELL COUNT(AUTO) 3.64 MIL/uL (4.5-6.0); RED CELL DISTRIBUTION WIDTH 16.3 % (11.5-15.0); WHITE BLOOD COUNT (AUTO) 8.8 K/uL (4.3-11.0)
[2024-06-11] VITALS (15 sets, daily range): BP systolic 105–112; BP diastolic 64–74; TEMP 97.3–98; O2SAT 92–100
[2024-06-11] MEDS: Potassium Chloride 10 MEQ in IV D5W 1,000 ML IV SCH (08:17)
[2024-06-11 08:58] LABS: BASOPHILS % (AUTO) 0.4 % (0.0-2.0); HEMATOCRIT 29 % (39-51); LYMPHOCYTES # (AUTO) 0.5 K/uL (0.8-4.8); LYMPHOCYTES % (AUTO) 6.7 % (20.0-44.0); MEAN CORPUSCULAR HEMOGLOBIN 30 PG (26.0-33.0); MEAN CORPUSCULAR HGB CONC 34 g/dl (31.0-36.0); MEAN CORPUSCULAR VOLUME 88 fL (80-96); MONOCYTES # (AUTO) 0.4 K/uL (0.1-1.30); MONOCYTES % (AUTO) 5.6 % (2.0-12.0); NEUTROPHILS # (AUTO) 5.9 K/uL (1.8-8.9); NEUTROPHILS % (AUTO) 74.3 % (43.0-81.0); PLATELET COUNT (AUTO) 181 K/uL (150-450); RED BLOOD CELL COUNT(AUTO) 3.34 MIL/uL (4.5-6.0); RED CELL DISTRIBUTION WIDTH 15.7 % (11.5-15.0)
[2024-06-11 09:25] LABS: ALBUMIN 1.6 g/dL (3.4-5.0); BILIRUBIN,TOTAL 0.4 mg/dL (0.2-1.0); CALCIUM, SERUM 8.5 mg/dL (8.5-10.1); CREATININE 0.9 mg/dL (0.6-1.3); PHOSPHORUS 2.4 mg/dL (2.5-4.9); POTASSIUM 3.2 mmol/L (3.5-5.1); TOTAL PROTEIN, SERUM 5.4 g/dL (6.4-8.2)
[2024-06-11] MEDS: DIVALPROEX SODIUM 125 MG CAP.SPRINK PO SCH (13:48)
[2024-06-11] MEDS ORDERED: IV NS 0.9% 1,000 ML BAG IV PRN (19:00)
[2024-06-11] MEDS: Sodium Phosphate 15 MMOL in IV NS 0.9% 245 ML IV ONE (20:36)
[2024-06-12] VITALS (17 sets, daily range): BP systolic 95–114; BP diastolic 52–92; TEMP 97.6–98.4; O2SAT 93–99
[2024-06-12 08:26] LABS: BASOPHILS % (AUTO) 0.2 % (0.0-2.0); EOSINOPHILS # (AUTO) 0.1 K/uL (0.0-0.7); EOSINOPHILS % (AUTO) 0.7 % (0.0-6.0); HEMATOCRIT 31 % (39-51); HEMOGLOBIN 10.4 g/dL (13.5-17.5); LYMPHOCYTES # (AUTO) 0.5 K/uL (0.8-4.8); LYMPHOCYTES % (AUTO) 5.9 % (20.0-44.0); MEAN CORPUSCULAR HEMOGLOBIN 30 PG (26.0-33.0); MEAN CORPUSCULAR HGB CONC 33 g/dl (31.0-36.0); MEAN CORPUSCULAR VOLUME 88 fL (80-96); MONOCYTES # (AUTO) 0.6 K/uL (0.1-1.30); MONOCYTES % (AUTO) 6.7 % (2.0-12.0); NEUTROPHILS # (AUTO) 7.1 K/uL (1.8-8.9); NEUTROPHILS % (AUTO) 86.5 % (43.0-81.0); PLATELET COUNT (AUTO) 180 K/uL (150-450); RED BLOOD CELL COUNT(AUTO) 3.53 MIL/uL (4.5-6.0); RED CELL DISTRIBUTION WIDTH 15.7 % (11.5-15.0); WHITE BLOOD COUNT (AUTO) 8.2 K/uL (4.3-11.0)
[2024-06-12 08:52] LABS: ALBUMIN 1.7 g/dL (3.4-5.0); BILIRUBIN,TOTAL 0.5 mg/dL (0.2-1.0); CALCIUM, SERUM 8.2 mg/dL (8.5-10.1); CREATININE 0.9 mg/dL (0.6-1.3); PHOSPHORUS 3.4 mg/dL (2.5-4.9); POTASSIUM 3.3 mmol/L (3.5-5.1); TOTAL PROTEIN, SERUM 5.6 g/dL (6.4-8.2)
[2024-06-12] MEDS: PANTOPRAZOLE 40 MG TABLET.DR PO SCH (09:00)
[2024-06-13] VITALS (18 sets, daily range): BP systolic 87–145; BP diastolic 70–89; TEMP 97.5–98.1; O2SAT 96–100
[2024-06-13 08:35] LABS: BASOPHILS % (AUTO) 0.2 % (0.0-2.0); EOSINOPHILS # (AUTO) 0.6 K/uL (0.0-0.7); EOSINOPHILS % (AUTO) 5.9 % (0.0-6.0); HEMATOCRIT 33 % (39-51); HEMOGLOBIN 11.4 g/dL (13.5-17.5); LYMPHOCYTES # (AUTO) 0.8 K/uL (0.8-4.8); LYMPHOCYTES % (AUTO) 8.3 % (20.0-44.0); MEAN CORPUSCULAR HEMOGLOBIN 30 PG (26.0-33.0); MEAN CORPUSCULAR HGB CONC 35 g/dl (31.0-36.0); MEAN CORPUSCULAR VOLUME 87 fL (80-96); MONOCYTES # (AUTO) 0.5 K/uL (0.1-1.30); MONOCYTES % (AUTO) 5.5 % (2.0-12.0); NEUTROPHILS # (AUTO) 7.5 K/uL (1.8-8.9); NEUTROPHILS % (AUTO) 80.1 % (43.0-81.0); PLATELET COUNT (AUTO) 199 K/uL (150-450); RED BLOOD CELL COUNT(AUTO) 3.77 MIL/uL (4.5-6.0); RED CELL DISTRIBUTION WIDTH 15.6 % (11.5-15.0); WHITE BLOOD COUNT (AUTO) 9.4 K/uL (4.3-11.0)
[2024-06-13 09:20] LABS: ALBUMIN 1.6 g/dL (3.4-5.0); BILIRUBIN,TOTAL 0.4 mg/dL (0.2-1.0); CALCIUM, SERUM 8.2 mg/dL (8.5-10.1); CREATININE 0.8 mg/dL (0.6-1.3); PHOSPHORUS 2.7 mg/dL (2.5-4.9); POTASSIUM 3.2 mmol/L (3.5-5.1); TOTAL PROTEIN, SERUM 5.7 g/dL (6.4-8.2)
[2024-06-13] MEDS: IV D5/ 0.9% NACL 1,000 ML IV PRN (14:44)
[2024-06-13] MEDS ORDERED: MAGNESIUM HYDROXIDE 30 ML UDC GT PRN (14:46)
[2024-06-13] MEDS ORDERED: MAG HYDROX/AL HYDROX/SIMETH 30 ML UDC GT PRN (14:46)
[2024-06-13] MEDS ORDERED: ACETAMINOPHEN 650 MG/20.3 ML UDC GT PRN (15:00)
[2024-06-13] MEDS: POTASSIUM CL. PREMIX PERIPHER. 50 ML IV SCH (15:52)
[2024-06-13] MEDS ORDERED: JEVITY 1.2 CAL 1,000 ML BOTTLE GT PRN (16:30)
[2024-06-13] MEDS: PROSOURCE / PROSTAT (PYXIS) 30 ML UDC GT SCH (17:00)
[2024-06-13] MEDS: BENZTROPINE MESYLATE (1 MG) 1 MG TABLET GT SCH (17:00)
[2024-06-13] MEDS: GABAPENTIN 300 MG CAPSULE GT SCH (17:00)
[2024-06-13] MEDS: PSYLLIUM SEED 1 PKT PACKET GT SCH (17:00)
[2024-06-13] MEDS: DIVALPROEX SODIUM 125 MG CAP.SPRINK GT SCH (17:00)
[2024-06-13] MEDS: ENSURE ENLIVE CHOC 237 ML CAN GT SCH (17:00)
[2024-06-13] MEDS: OXCARBAZEPINE 150 MG TABLET GT SCH (17:00)
[2024-06-13] MEDS ORDERED: FREE WATER VIA TUBE FEEDING NG SCH (18:00)
[2024-06-13] MEDS: SENNOSIDES 8.6 MG TABLET GT SCH (21:55)
[2024-06-13] MEDS: ACETAMINOPHEN 650 MG/20.3 ML UDC GT PRN (21:57)
[2024-06-14] VITALS (17 sets, daily range): BP systolic 92–103; BP diastolic 63–88; TEMP 97.2–97.8; O2SAT 96–100
[2024-06-14 08:11] LABS: BASOPHILS % (AUTO) 0.2 % (0.0-2.0); EOSINOPHILS # (AUTO) 0.8 K/uL (0.0-0.7); EOSINOPHILS % (AUTO) 9.4 % (0.0-6.0); HEMATOCRIT 31 % (39-51); HEMOGLOBIN 10.7 g/dL (13.5-17.5); LYMPHOCYTES # (AUTO) 0.6 K/uL (0.8-4.8); LYMPHOCYTES % (AUTO) 7.3 % (20.0-44.0); MEAN CORPUSCULAR HEMOGLOBIN 30 PG (26.0-33.0); MEAN CORPUSCULAR HGB CONC 34 g/dl (31.0-36.0); MEAN CORPUSCULAR VOLUME 87 fL (80-96); MONOCYTES # (AUTO) 0.3 K/uL (0.1-1.30); MONOCYTES % (AUTO) 4.2 % (2.0-12.0); NEUTROPHILS # (AUTO) 6.4 K/uL (1.8-8.9); NEUTROPHILS % (AUTO) 78.9 % (43.0-81.0); PLATELET COUNT (AUTO) 232 K/uL (150-450); RED BLOOD CELL COUNT(AUTO) 3.59 MIL/uL (4.5-6.0); RED CELL DISTRIBUTION WIDTH 15.1 % (11.5-15.0); WHITE BLOOD COUNT (AUTO) 8.1 K/uL (4.3-11.0)
[2024-06-14 08:27] LABS: ALBUMIN 1.5 g/dL (3.4-5.0); BILIRUBIN,TOTAL 0.4 mg/dL (0.2-1.0); CALCIUM, SERUM 8.3 mg/dL (8.5-10.1); PHOSPHORUS 2.5 mg/dL (2.5-4.9); POTASSIUM 3.1 mmol/L (3.5-5.1); TOTAL PROTEIN, SERUM 5.6 g/dL (6.4-8.2)
[2024-06-14] MEDS: PANTOPRAZOLE 40 MG/PACK PACK NG SCH (08:40)
[2024-06-14] MEDS: ACETAMINOPHEN 650 MG/20.3 ML UDC GT SCH (08:43)
[2024-06-14] MEDS: ZINC SULFATE 220 MG CAPSULE GT SCH (08:43)
[2024-06-14] MEDS: FAMOTIDINE (20 MG) 20 MG TABLET GT SCH (08:44)
[2024-06-14] MEDS: MULTIVITAMINS,THERAGRAN 1 UDTAB TABLET GT SCH (08:44)
[2024-06-14] MEDS: ASCORBIC ACID 500 MG TABLET GT SCH (08:44)
[2024-06-14] MEDS: CHOLECALCIFEROL 1,000 UNIT TABLET (VIT D3) GT SCH (08:44)
[2024-06-14] MEDS: POTASSIUM CHLORIDE 20 MEQ POWDER PACKET GT SCH (10:48)
[2024-06-14] MEDS ORDERED: VANCOMYCIN 750 MG in IV D5W 250 ML IV SCH (23:00)
[2024-06-14] MEDS: JEVITY 1.2 CAL 1,000 ML BOTTLE GT PRN (23:34)
[2024-06-15] VITALS (13 sets, daily range): BP systolic 94–133; BP diastolic 61–96; TEMP 96.8–97.9; O2SAT 95–100
[2024-06-15] MEDS: VANCOMYCIN 750 MG in IV D5W 250 ML IV SCH (05:55)
[2024-06-15 09:07] LABS: BASOPHILS % (AUTO) 0.1 % (0.0-2.0); EOSINOPHILS # (AUTO) 0.9 K/uL (0.0-0.7); EOSINOPHILS % (AUTO) 10.1 % (0.0-6.0); HEMATOCRIT 31 % (39-51); LYMPHOCYTES # (AUTO) 0.5 K/uL (0.8-4.8); LYMPHOCYTES % (AUTO) 5.8 % (20.0-44.0); MEAN CORPUSCULAR HEMOGLOBIN 30 PG (26.0-33.0); MEAN CORPUSCULAR HGB CONC 32 g/dl (31.0-36.0); MEAN CORPUSCULAR VOLUME 95 fL (80-96); MONOCYTES # (AUTO) 0.3 K/uL (0.1-1.30); MONOCYTES % (AUTO) 3.8 % (2.0-12.0); NEUTROPHILS % (AUTO) 80.2 % (43.0-81.0); PLATELET COUNT (AUTO) 216 K/uL (150-450); RED BLOOD CELL COUNT(AUTO) 3.29 MIL/uL (4.5-6.0); RED CELL DISTRIBUTION WIDTH 16.8 % (11.5-15.0); WHITE BLOOD COUNT (AUTO) 8.7 K/uL (4.3-11.0)
[2024-06-15 09:45] LABS: BILIRUBIN,TOTAL 0.3 mg/dL (0.2-1.0); CREATININE 1.2 mg/dL (0.6-1.3); MAGNESIUM 2.2 mg/dL (1.8-2.4); PHOSPHORUS 2.5 mg/dL (2.5-4.9); POTASSIUM 4.1 mmol/L (3.5-5.1); TOTAL PROTEIN, SERUM 5.4 g/dL (6.4-8.2)
[2024-06-15 09:51] LABS: ALBUMIN 1.3 g/dL (3.4-5.0)
[2024-06-15] MEDS: IV 1/2NS 1000 ML 1,000 ML IV PRN (13:49)
[2024-06-15] MEDS ORDERED: HYDROCODONE/APAP 5/325MG TABLET PO PRN (18:30)
[2024-06-16] VITALS: BP 95/61; TEMP 97.3; O2SAT 96
[2024-06-16 04:00] VITALS: BP 92/71; TEMP 97.7; O2SAT 99
[2024-06-16 08:10] VITALS: BP 148/107; TEMP 97.9; O2SAT 99
[2024-06-16 08:38] VITALS: O2SAT 98
[2024-06-16 09:03] LABS: BASOPHILS % (AUTO) 0.1 % (0.0-2.0); EOSINOPHILS # (AUTO) 0.9 K/uL (0.0-0.7); EOSINOPHILS % (AUTO) 7.1 % (0.0-6.0); HEMATOCRIT 32 % (39-51); HEMOGLOBIN 10.8 g/dL (13.5-17.5); LYMPHOCYTES # (AUTO) 0.5 K/uL (0.8-4.8); LYMPHOCYTES % (AUTO) 4.3 % (20.0-44.0); MEAN CORPUSCULAR HEMOGLOBIN 29 PG (26.0-33.0); MEAN CORPUSCULAR HGB CONC 34 g/dl (31.0-36.0); MEAN CORPUSCULAR VOLUME 88 fL (80-96); MONOCYTES # (AUTO) 0.5 K/uL (0.1-1.30); MONOCYTES % (AUTO) 3.8 % (2.0-12.0); NEUTROPHILS # (AUTO) 10.7 K/uL (1.8-8.9); NEUTROPHILS % (AUTO) 84.7 % (43.0-81.0); PLATELET COUNT (AUTO) 268 K/uL (150-450); RED BLOOD CELL COUNT(AUTO) 3.67 MIL/uL (4.5-6.0); RED CELL DISTRIBUTION WIDTH 15.8 % (11.5-15.0); WHITE BLOOD COUNT (AUTO) 12.6 K/uL (4.3-11.0)
[2024-06-16 09:07] LABS: ALBUMIN 1.5 g/dL (3.4-5.0); BILIRUBIN,TOTAL 0.3 mg/dL (0.2-1.0); CALCIUM, SERUM 8.2 mg/dL (8.5-10.1); CREATININE 1.3 mg/dL (0.6-1.3); POTASSIUM 3.8 mmol/L (3.5-5.1); TOTAL PROTEIN, SERUM 5.4 g/dL (6.4-8.2)
[2024-06-16 16:10] VITALS: BP 92/58; TEMP 97.7; O2SAT 100
[2024-06-16 20:00] VITALS: BP 107/70; TEMP 96.8; O2SAT 95
[2024-06-17 00:10] VITALS: BP 107/70; TEMP 96.8; O2SAT 95
[2024-06-17 04:00] VITALS: BP 145/68; TEMP 98.2; O2SAT 98
[2024-06-17 08:00] VITALS: BP 91/75; O2SAT 99
[2024-06-17] MEDS: FREE WATER VIA TUBE FEEDING GT SCH (08:32)
== END 2024-06-17 12:18 | disposition hospice, inpatient (51) | DRG 871 ==
LOC: ER 10:17 → MEDSG1 11:48 → TELE1 14:50 → MEDSG1 06-16 10:14
PROVIDERS: ADMIT Nurse Practitioner Acute Care; ATTEND Internal Medicine
DX: A41.9 Sepsis, unspecified organism (principal); E43 Unspecified severe protein-calorie malnutrition; L89.613 Pressure ulcer of right heel, stage 3; J15.69 Pneumonia due to other Gram-negative bacteria; G93.41 Metabolic encephalopathy; J96.01 Acute respiratory failure with hypoxia; R65.21 Severe sepsis with septic shock; J15.9 Unspecified bacterial pneumonia; J69.0 Pneumonitis due to inhalation of food and vomit; D68.59 Other primary thrombophilia; N39.0 Urinary tract infection, site not specified; E87.0 Hyperosmolality and hypernatremia; E87.20 Acidosis, unspecified; N17.9 Acute kidney failure, unspecified; Z68.1 Body mass index [BMI] 19.9 or less, adult; R64 Cachexia; E78.5 Hyperlipidemia, unspecified; E87.6 Hypokalemia; L89.621 Pressure ulcer of left heel, stage 1; Z51.5 Encounter for palliative care; Z66 Do not resuscitate; R13.10 Dysphagia, unspecified; K21.9 Gastro-esophageal reflux disease without esophagitis; D63.8 Anemia in other chronic diseases classified elsewhere; F32.A Depression, unspecified; Z74.09 Other reduced mobility; M62.58 Muscle wasting and atrophy, not elsewhere classified, other site; Z68.21 Body mass index [BMI] 21.0-21.9, adult; Z20.822 Contact with and (suspected) exposure to COVID-19; F03.90 Unspecified dementia, unspecified severity, without behavioral disturbance, psychotic disturbance, mood disturbance, and anxiety; I10 Essential (primary) hypertension
CPT/HCPCS: 31720; 36415; 71045-TC; 80048-TC; 80053-TC; 80061-TC; 80076-TC; 80202-TC; 81001; 82962-TC; 83605-TC; 83735-TC; 83880; 84100-TC; 84484-TC; 85025-TC; 85730-TC; 87040-TC; 87081-TC; 87086-TC; 92526; 92611-TC; 93970-TC; 94760-TC; 94762-TC; 94799-TC; A4217; A4223; A6253; A9563; G0378; J1650; J2270; J2470; J2543; J3370; J3371; J3480; J3490; J7042; J7050; J7060; J7070